=== PATIENT | female | born 1950 | race American Indian/Alaskan Native ===

== ENCOUNTER 2017-01-06 21:49 | Observation (INO) | payer MEDICARE ==
[2017-01-06 23:25] LABS: Anion Gap 12 mmol/L; BUN/Creatinine Ratio 17.14; Blood Urea Nitrogen 12 mg/dL (7-17); Calcium 8.5 mg/dL (8.4-10.2); Carbon Dioxide 31 mmol/L (22-30); Chloride 105.2 mmol/L (98-107); Glucose 112 mg/dL (65-100); Potassium 4.3 mmol/L (3.6-5.0); Sodium 144 mmol/L (137-145)
[2017-01-06 23:31] LABS: Basophils % (Auto) 0.3 % (0.0-1.8); Eosinophils % (Auto) 3.6 % (0.0-4.3); Hematocrit 39.5 % (30.3-42.9); Mean Corpuscular HGB Conc 33 % (30-34); Mean Corpuscular Hemoglobin 29 pg (28-32); Mean Corpuscular Volume 89 fl (79-97); Platelet Count 232 K/mm3 (140-440); Red Blood Count 4.45 M/mm3 (3.65-5.03); Red Cell Distribution Width 13.4 % (13.2-15.2); White Blood Count 6.4 K/mm3 (4.5-11.0)
--- NOTE | 2017-01-07 08:39 | Emergency Department Report ---
ED Chest Pain HPI - General Chief Complaint: Chest Pain Stated Complaint: CP Time Seen by Provider: 01/07/17 08:38 Source: patient Mode of arrival: Ambulatory Limitations: No Limitations - History of Present Illness Initial Comments: Patient is a 66-year-old female past medical history transient ischemic attack who presents with right-sided chest pain that has been going on for the last day. Patient states that the pain is a 9 out 10 and occurred when she was sleeping around 6 AM and awoke her from her sleep. She states that it was sudden in onset as a sharp type of pain. It radiates throughout her chest. Nothing makes the chest pain better or worse the chest pain is constant. She denies having any shortness of breath nausea or vomiting. 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 She takes Lipitor and takes a daily aspirin every day. Severity scale (0 -10): 9 - Related Data Previous Rx's Medication Instructions Recorded Last Taken Type Acetaminophen/Codeine 1 tab PO Q6H PRN #10 tab 05/05/14 Unknown Rx [Acetaminophen-Codeine #3 TAB] Penicillin Vk [Veetids TAB] 500 mg PO QID #40 tablet 05/05/14 Unknown Rx Allergies Allergy/AdvReac Type Severity Reaction Status Date / Time No Known Allergies Allergy Unverified 05/05/14 09:24 Heart Score - HEART Score History: Slightly suspicious EKG: Normal Age: 45-65 Risk factors: 1-2 risk factors Troponin: > 3x normal limit HEART Score: 4 ED Review of Systems ROS: Stated complaint: CP Other details as noted in HPI Constitutional: denies: chills, fever Eyes: denies: eye pain, eye discharge, vision change ENT: denies: ear pain, throat pain Respiratory: denies: cough, shortness of breath, wheezing Cardiovascular: chest pain. denies: palpitations Endocrine: no symptoms reported Gastrointestinal: denies: abdominal pain, nausea, diarrhea Genitourinary: denies: urgency, dysuria, discharge Musculoskeletal: denies: back pain, joint swelling, arthralgia Skin: denies: rash, lesions Neurological: denies: headache, weakness, paresthesias Psychiatric: denies: anxiety, depression Hematological/Lymphatic: denies: easy bleeding, easy bruising ED Past Medical Hx - Past Medical History Previous Medical History?: No Additional medical history: hammer toes - Surgical History Past Surgical History?: Yes Hx Cholecystectomy: Yes Additional Surgical History: Bilat knee replacement,BUNGEON REPAIR, - Social History Smoking Status: Never Smoker Substance Use Type: None - Medications Home Medications: Home Medications Medication Instructions Recorded Confirmed Last Taken Type Acetaminophen/Codeine 1 tab PO Q6H PRN #10 tab 05/05/14 Unknown Rx [Acetaminophen-Codeine #3 TAB] Penicillin Vk [Veetids TAB] 500 mg PO QID #40 tablet 05/05/14 Unknown Rx ED Physical Exam - General Limitations: No Limitations General appearance: alert, in no apparent distress - Head Head exam: Present: atraumatic, normocephalic - Eye Eye exam: Present: normal appearance - ENT ENT exam: Present: mucous membranes moist - Neck Neck exam: Present: normal inspection - Respiratory Respiratory exam: Present: normal lung sounds bilaterally, chest wall tenderness. Absent: respiratory distress - Cardiovascular Cardiovascular Exam: Present: regular rate, normal rhythm. Absent: systolic murmur, diastolic murmur, rubs, gallop - GI/Abdominal GI/Abdominal exam: Present: soft, normal bowel sounds - Extremities Exam Extremities exam: Present: normal inspection - Back Exam Back exam: Present: normal inspection - Neurological Exam Neurological exam: Present: alert, oriented X3 - Psychiatric Psychiatric exam: Present: normal affect, normal mood - Skin Skin exam: Present: warm, dry, intact, normal color. Absent: rash ED Course Vital Signs 01/06/17 01/07/17 01/07/17 21:59 01:14 06:21 Temperature 98.8 F 98.6 F 98.3 F Pulse Rate 79 70 63 Respiratory 18 20 16 Rate Blood Pressure 136/86 128/79 Blood Pressure 128/75 [Left] O2 Sat by Pulse 100 100 100 Oximetry 01/07/17 01/07/17 07:45 10:28 Temperature 97.7 F Pulse Rate 68 62 Respiratory 18 18 Rate Blood Pressure Blood Pressure 137/78 128/77 [Left] O2 Sat by Pulse 100 98 Oximetry - Reevaluation(s) Reevaluation #1: 01/07/17 09:29 Patient is still having chest pain I will give patient IV morphine and I will admit patient AURE score - Aure Score Age > 65: (0) No Aspirin use within the Past 7 Days: (1) Yes 3 or more CAD Risk Factors: (1) Yes 2 or more Angina events in past 24 hrs: (0) No Known CAD with more than 50% Stenosis: (0) No Elevated Cardiac Markers: (0) No ST Deviation Greater than 0.5mm: (0) No AURE Score: 2 ED Medical Decision Making - Lab Data Result diagrams: 01/06/17 22:51 01/06/17 22:51 Lab Results 01/06/17 01/06/17 01/07/17 Range/Units 22:51 22:51 00:42 WBC 6.4 (4.5-11.0) K/mm3 RBC 4.45 (3.65-5.03) M/mm3 Hgb 13.0 (10.1-14.3) gm/dl Hct 39.5 (30.3-42.9) % MCV 89 (79-97) fl MCH 29 (28-32) pg MCHC 33 (30-34) % RDW 13.4 (13.2-15.2) % Plt Count 232 (140-440) K/mm3 Lymph % (Auto) 36.3 H (13.4-35.0) % [place] % (Auto) 9.1 H (0.0-7.3) % Eos % (Auto) 3.6 (0.0-4.3) % Baso % (Auto) 0.3 (0.0-1.8) % Lymph # 2.3 (1.2-5.4) K/mm3 [place] # 0.6 (0.0-0.8) K/mm3 Eos # 0.2 (0.0-0.4) K/mm3 Baso # 0.0 (0.0-0.1) K/mm3 Seg Neutrophils % 50.7 (40.0-70.0) % Seg Neutrophils # 3.2 (1.8-7.7) K/mm3 Sodium 144 (137-145) mmol/L Potassium 4.3 (3.6-5.0) mmol/L Chloride 105.2 (98-107) mmol/L Carbon Dioxide 31 H (22-30) mmol/L Anion Gap 12 mmol/L BUN 12 (7-17) mg/dL Creatinine 0.7 (0.7-1.2) mg/dL Estimated GFR > 60 ml/min BUN/Creatinine Ratio 17.14 % Glucose 112 H (65-100) mg/dL Calcium 8.5 (8.4-10.2) mg/dL Troponin T < 0.010 < 0.010 (0.00-0.029) ng/mL 01/07/17 Range/Units 04:05 WBC (4.5-11.0) K/mm3 RBC (3.65-5.03) M/mm3 Hgb (10.1-14.3) gm/dl Hct (30.3-42.9) % MCV (79-97) fl MCH (28-32) pg MCHC (30-34) % RDW (13.2-15.2) % Plt Count (140-440) K/mm3 Lymph % (Auto) (13.4-35.0) % [place] % (Auto) (0.0-7.3) % Eos % (Auto) (0.0-4.3) % Baso % (Auto) (0.0-1.8) % Lymph # (1.2-5.4) K/mm3 [place] # (0.0-0.8) K/mm3 Eos # (0.0-0.4) K/mm3 Baso # (0.0-0.1) K/mm3 Seg Neutrophils % (40.0-70.0) % Seg Neutrophils # (1.8-7.7) K/mm3 Sodium (137-145) mmol/L Potassium (3.6-5.0) mmol/L Chloride (98-107) mmol/L Carbon Dioxide (22-30) mmol/L Anion Gap mmol/L BUN (7-17) mg/dL Creatinine (0.7-1.2) mg/dL Estimated GFR ml/min BUN/Creatinine Ratio % Glucose (65-100) mg/dL Calcium (8.4-10.2) mg/dL Troponin T < 0.010 (0.00-0.029) ng/mL - EKG Data -: EKG Interpreted by Me - EKG Data 01/07/17 09:30 EKG shows normal sinus rhythm no ST segment elevations, normal axis no T-wave inversions. - Radiology Data Radiology results: image reviewed Chest x-ray: Shows no acute cardio-pulmonary disease - Medical Decision Making Chief medical diagnosis: Non-STEMI Differential medical diagnosis: Costochondritis, GERD, pneumothorax, pneumonia EKG, CBC, CMP, chest x-ray, troponin, IV pain medication, aspirin Due to patient having risk factors such as hyperlipidemia advanced age and chest pain that has been going on for the last day different from her typical GERD I will admit patient for an ACS rule out. Discussed plan with patient and she agrees with plan. Critical care attestation.: If time is entered above; I have spent that time in minutes in the direct care of this critically ill patient, excluding procedure time. ED Disposition Clinical Impression: Chest pain Qualifiers: Chest pain type: unspecified Qualified Code(s): R07.9 - Chest pain, unspecified Disposition: DC-09 OP ADMIT IP TO THIS HOSP Is pt being admited?: Yes Does the pt Need Aspirin: No Condition: Stable Instructions: Chest Pain (ED) Referrals: PRIMARY CARE, [Primary Care Provider] - 3-5 Days Time of Disposition: 11:15
[2017-01-07] MEDS ORDERED: BABY ASPIRIN PO ONE (09:02)
[2017-01-07] MEDS ORDERED: MORPHINE IV ONE (09:25)
--- NOTE | 2017-01-07 09:30 | XRay Report ---
ROUTINE CHEST, TWO VIEWS: HISTORY: chest pain. The trachea, heart, mediastinal contour, lung connelly and bony thorax are unremarkable. IMPRESSION: Unremarkable chest x-ray.
[2017-01-07] MEDS ORDERED: ZOFRAN ONE (10:29)
[2017-01-07] MEDS ORDERED: ZOFRAN IV ONE (10:30)
[2017-01-07] MEDS ORDERED: ZOFRAN IV PRN (16:58)
[2017-01-07] MEDS ORDERED: PERCOCET 5/325 PO PRN (16:58)
[2017-01-07] MEDS ORDERED: DILAUDID IV PRN (16:58)
[2017-01-07] MEDS ORDERED: MILK OF MAGNESIA PO PRN (16:58)
[2017-01-07] MEDS ORDERED: TYLENOL PO PRN (16:58)
[2017-01-07] MEDS ORDERED: PHENERGAN PR PRN (16:58)
[2017-01-07] MEDS ORDERED: TYLENOL #3 PO PRN (16:58)
[2017-01-07] MEDS ORDERED: DULCOLAX PR PRN (16:58)
--- NOTE | 2017-01-07 16:58 | History and Physical Report ---
History of Present Illness Date of examination: 01/07/17 Date of admission: 01/07/17 11:11 Chief complaint: Chest pain since AM History of present illness: - History of Present Illness Initial Comments: Patient is a 66-year-old female past medical history transient ischemic attack who presents with retrosternal and rt chest pain that has been going on for the last day. Patient states that the pain is a 9 out 10 and occurred when she was sleeping around 6 AM and awoke her from her sleep. She states that it was sudden in onset as a sharp type of pain. It radiates throughout her chest. Nothing makes the chest pain better or worse the chest pain is constant. She denies having any shortness of breath nausea or vomiting. 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 She takes Lipitor and takes a daily aspirin every day. Severity scale (0 -10): 9 Heart Score - HEART Score History: Slightly suspicious EKG: Normal Age: 45-65 Risk factors: 1-2 risk factors Troponin: > 3x normal limit HEART Score: 4 Past Medical History Previous Medical History?: No Additional medical history: hammer toes Surgical History Past Surgical History?: Yes Hx Cholecystectomy: Yes Additional Surgical History: Bilat knee replacement,BUNGEON REPAIR, Social History Smoking Status: Never Smoker Substance Use Type: None Medications Home Medications: Home Medications Medication Instructions Recorded Confirmed Last Taken Type Acetaminophen/Codeine 1 tab PO Q6H PRN #10 tab 05/05/14 Unknown Rx [Acetaminophen-Codeine #3 TAB] Penicillin Vk [Veetids TAB] 500 mg PO QID #40 tablet 05/05/14 Unknown Rx Review of Systems Stated complaint: CP Other details as noted in HPI Constitutional: denies: chills, fever Eyes: denies: eye pain, eye discharge, vision change ENT: denies: ear pain, throat pain Respiratory: denies: cough, shortness of breath, wheezing Cardiovascular: chest pain. denies: palpitations Endocrine: no symptoms reported Gastrointestinal: denies: abdominal pain, nausea, diarrhea Genitourinary: denies: urgency, dysuria, discharge Musculoskeletal: denies: back pain, joint swelling, arthralgia Skin: denies: rash, lesions Neurological: denies: headache, weakness, paresthesias Psychiatric: denies: anxiety, depression Hematological/Lymphatic: denies: easy bleeding, easy bruising Medications and Allergies Allergies Allergy/AdvReac Type Severity Reaction Status Date / Time No Known Allergies Allergy Unverified 05/05/14 09:24 Home Medications Medication Instructions Recorded Confirmed Last Taken Type Acetaminophen/Codeine 1 tab PO Q6H PRN #10 tab 05/05/14 Unknown Rx [Acetaminophen-Codeine #3 TAB] Penicillin Vk [Veetids TAB] 500 mg PO QID #40 tablet 05/05/14 Unknown Rx Exam - Constitutional Vitals: Temp Pulse Resp BP Pulse Ox 97.7 F 68 18 108/68 97 01/07/17 07:45 01/07/17 15:16 01/07/17 15:16 01/07/17 15:16 01/07/17 15:16 General appearance: Present: no acute distress, well-nourished - EENT Eyes: Present: PERRL ENT: hearing intact, clear oral mucosa - Neck Neck: Present: supple, normal ROM - Respiratory Respiratory effort: normal Respiratory: bilateral: CTA - Cardiovascular Heart rate: 63 Rhythm: regular Heart Sounds: Present: S1 & S2. Absent: rub, click - Extremities Extremities: pulses symmetrical, No edema Peripheral Pulses: within normal limits - Abdominal General gastrointestinal: Present: soft, non-tender, non-distended, normal bowel sounds Female genitourinary: Present: normal - Rectal Rectal Exam: deferred - Integumentary Integumentary: Present: clear, warm, dry - Musculoskeletal Musculoskeletal: gait normal, strength equal bilaterally - Psychiatric Psychiatric: appropriate mood/affect, intact judgment & insight - Neurologic Neurologic: CNII-XII intact, moves all extremities - Allied Health Allied health notes reviewed: nursing, case management Results - Labs CBC & Chem 7: 01/06/17 22:51 01/06/17 22:51 Labs: Laboratory Last Values WBC 6.4 K/mm3 (4.5-11.0) 01/06/17 22:51 RBC 4.45 M/mm3 (3.65-5.03) 01/06/17 22:51 Hgb 13.0 gm/dl (10.1-14.3) 01/06/17 22:51 Hct 39.5 % (30.3-42.9) 01/06/17 22:51 MCV 89 fl (79-97) 01/06/17 22:51 MCH 29 pg (28-32) 01/06/17 22:51 MCHC 33 % (30-34) 01/06/17 22:51 RDW 13.4 % (13.2-15.2) 01/06/17 22:51 Plt Count 232 K/mm3 (140-440) 01/06/17 22:51 Lymph % (Auto) 36.3 % (13.4-35.0) H 01/06/17 22:51 [place] % (Auto) 9.1 % (0.0-7.3) H 01/06/17 22:51 Eos % (Auto) 3.6 % (0.0-4.3) 01/06/17 22:51 Baso % (Auto) 0.3 % (0.0-1.8) 01/06/17 22:51 Lymph # 2.3 K/mm3 (1.2-5.4) 01/06/17 22:51 [place] # 0.6 K/mm3 (0.0-0.8) 01/06/17 22:51 Eos # 0.2 K/mm3 (0.0-0.4) 01/06/17 22:51 Baso # 0.0 K/mm3 (0.0-0.1) 01/06/17 22:51 Seg Neutrophils % 50.7 % (40.0-70.0) 01/06/17 22:51 Seg Neutrophils # 3.2 K/mm3 (1.8-7.7) 01/06/17 22:51 Sodium 144 mmol/L (137-145) 01/06/17 22:51 Potassium 4.3 mmol/L (3.6-5.0) 01/06/17 22:51 Chloride 105.2 mmol/L (98-107) 01/06/17 22:51 Carbon Dioxide 31 mmol/L (22-30) H 01/06/17 22:51 Anion Gap 12 mmol/L 01/06/17 22:51 BUN 12 mg/dL (7-17) 01/06/17 22:51 Creatinine 0.7 mg/dL (0.7-1.2) 01/06/17 22:51 Estimated GFR > 60 ml/min 01/06/17 22:51 BUN/Creatinine Ratio 17.14 % 01/06/17 22:51 Glucose 112 mg/dL (65-100) H 01/06/17 22:51 Calcium 8.5 mg/dL (8.4-10.2) 01/06/17 22:51 Troponin T < 0.010 ng/mL (0.00-0.029) 01/07/17 04:05 - Imaging and Cardiology EKG: report reviewed (63 NSR) Assessment and Plan VTE prophylaxis?: Chemical Plan of care discussed with patient/family: Yes - Patient Problems (1) Acute coronary syndrome Current Visit: Yes Status: Acute Plan to address problem: Patient to get Serial cardiac enzymes and Lexiscan. Diff Dx of costochondritis and GERD (2) TIA (transient ischemic attack) Current Visit: No Status: Inactive Qualifiers: Transient cerebral ischemia type: unspecified Qualified Code(s): G45.9 - Transient cerebral ischemic attack, unspecified Plan to address problem: In the past (3) Malnutrition Current Visit: Yes Status: Chronic Plan to address problem: Albumin 3.3 Dietary consult (4) DVT prophylaxis Current Visit: Yes Status: Acute Plan to address problem: On Lovenox
[2017-01-07 18:27] LABS: Creatine Kinase MB 1.8 ng/mL (0.0-4.0)
[2017-01-07 18:28] LABS: Creatine Kinase 202 units/L (30-135)
[2017-01-07] MEDS ORDERED: PEPCID IV SCH (22:00)
[2017-01-07 23:34] LABS: Creatine Kinase MB 1.6 ng/mL (0.0-4.0)
[2017-01-07 23:36] LABS: Creatine Kinase 167 units/L (30-135)
[2017-01-08 08:10] LABS: Creatine Kinase MB 1.6 ng/mL (0.0-4.0)
[2017-01-08 08:13] LABS: Alanine Aminotransferase 16 units/L (7-56); Albumin 3.3 g/dL (3.9-5); Alkaline Phosphatase 49 units/L (35-129); Anion Gap 16 mmol/L; BUN/Creatinine Ratio 21.66; Blood Urea Nitrogen 13 mg/dL (7-17); Calcium 8.4 mg/dL (8.4-10.2); Carbon Dioxide 28 mmol/L (22-30); Chloride 104.1 mmol/L (98-107); Glucose 130 mg/dL (65-100); Sodium 144 mmol/L (137-145); Total Protein 6.7 g/dL (6.3-8.2)
[2017-01-08 08:17] LABS: Creatine Kinase 161 units/L (30-135)
--- NOTE | 2017-01-08 08:52 | Admit Criteria Form ---
Admission Criteria Documentation: CARDIOLOGY GRG Clinical Indications for Admission to Inpatient Care ([place]/check or initial the applicable condition/criteria) Hospital admission is needed for appropriate care of the patient because of ANY ONE of the following: [ ] I. Hemodynamic instability as indicated by ALL of the following (1)(2)(3) (4)(5)(6)(7)(8)(9)(10) [ ]a) Vital sign abnormality not readily corrected by appropriate treatment with 12-24 hours for ANY ONE: [ ]i) Hypotension that persists despite appropriate treatment (eg, volume repletion) [ ]ii) Tachycardiathat persists despite appropriate tx ( e.g., analgesia, fluids, sedation as indicated [ ]iii) Orthostatic vital sign changes that persists despite appropriate treatment (eg, volume repletion) [ ]b) Vital sign abnormailty that is severe indicated by ANY ONE of the following: [ ]i) Inadequate perfusion indicated by ANY ONE of the following: [ ] 1) Lactic acidosis (> 2 mmol/L) [ ] 2) New abnormal capillary refill (> 3 seconds) [ ] 3) Reduced urine output [ ] 4) New altered mental status [ ] 5) Myocardial Ischemia [ ] 6) Other metabolic acidosis (arterial pH <7.35 ) not otherwise explained. [ ]ii) Mean arterial pressure[A] less than 60 mm Hg [ ]iii) Mean arterial pressure[A] less than 70 mm Hg after 30 minutes of appropriate treatment (eg, fluid resuscitation) [ ]iv) Sustained heart rate greater than 120 beats per minute in adult or child 6 years or older[B] [ ]v) IV inotropic or vasopressor medication required to maintain adequate blood pressure or perfusion [ ] II. Severe heart failure as indicated by ANY ONE of the following(17)(18) [ ]a) Respiratory distress [ ]b) Hypotension [ ]c) Debilitating anasarca refractory to therapy (eg, tissue breakdown with infection)[C](19) [ ]d) Cardiac arrhythmias of immediate concern [ ]e) Myocardial ischemia [ ] III. Cardiac arrhythmias or findings of immediate concern indicated by ANY ONE of the following (21)(22): [ ] a) Heart rhythms that are inherently dangerous or unstable indicated by ANY ONE of the following (23)(24)(25): [ ] i) Resuscitated ventricular fibrillation or cardiac arrest [ ] ii) Ventricular escape rhythm [ ] iii) Sustained ventricular tachycardia (30 seconds or more of ventricular rhythm at greater than 100 beats per minute) [ ] iv) Nonsustained ventricular tachycardia and ANY ONE of the following: [ ] 1) Suspected cardiac ischemia as cause or consequence of ventricular tachycardia [ ] 2) Acute myocarditis [ ] b) Unstable cardiac conduction defects indicated by ANY ONE of the following(25)(26)(27) [ ] i) Type II second-degree atrioventricular block [ ]ii) Third-degree atrioventricular block [ ]iii) New-onset left bundle branch block with suspected myocardial ischemia [ ]c) Any heart rhythm and ANY ONE of the following (23)(24)(28)(29) (30) [ ] i) Continuous long-term ECG monitoring needed (e.g., initiation of drug requiring monitoring for more than 24 hours) [ ] ii) Patient has automatic implanted cardioverter defibrillator that is repeatedly firing, malfunctioning, or in need of immediate adjustment of settings beyond the scope of ambulatory or observation care [ ]d) Heart rhythms of concern due to ANY ONE of the following: [ ] i) Hypotension [ ] ii) Respiratory distress [ ] iii) Association with other significant symptoms (e.g., bradycardia with syncope or ongoing dizziness, supraventricular tachycardia with chest pain (28)(29)(31) [ ] IV. Monitoring for cardiac contusion beyond the scope of observation care needed [A](32)(33)(34) [ ] V. Surgical or device complication (e.g., valve replacement complication , ICD disfunction or pacemaker dysfunction) (49)(50)(51)(52)(53)(54) [ ] . Inpatient palliative care needed. [F](51)(52) Also use Inpatient Palliative Care Criteria [ ] VII. Nonbacterial thrombotic ([place]) endocarditis(43)(44)(55)(56)(57) [X] VIII. Cardiology condition, symptom, or finding for which emergency and observation care has failed or are not considered appropriate. [ ] IX. Acute valvular disease requiring inpatient as indicated by ANY ONE of the following (40)(41) [ ]a) Acute valvular regurgitation (42) [ ]b) Noninfectious valvulitis (43)(44) [ ]c) Obstructive valve thrombosis (45)(46) [ ]d) Paravalvular leak(47)(48) [ ]e) Other significant valvular disorder remaining after emergency or observation level of care (as appropriate) [ ]X. Pericardial disease requiring inpatient treatment as indicated by ANY ONE of the following (35)(36)(37)(38) [ ]a) Suspected tamponade [ ]b) Hemopericardium [ ]c) Other significant pericardial disorder remaining after emergency or observation level of care (as appropriate)(39) [ ] XI. Cardiac ischemia beyond scope of emergency and observation care. [ ] XII. Cyanotic heart disease requiring inpatient care as indicated by 1 or more of the following(58)(59)(60): [ ]a) Acute onset of hypoxemia [ ]b) Exacerbation [ ] XIII. Hypertension requiring inpatient treatment as indicated by ANYONE of the following(11)(12)(13)(14): [ ]a) Severe hypertension (SBP greater than 180 mm Hg or DBP greater than 110 mm Hg, or greater than the 95th percentile for age, gender, and height in pediatric patients) that cannot be controlled (eg, to SBP less than 160 mm Hg and DBP less than 100 mm Hg) by emergency department or observation care treatment(15) [ ]b) Acute end organ damage secondary to hypertension (SBP greater than 140 mm Hg or DBP greater than 90 mm Hg) as indicated by ANYONE of the following: [ ] i) Hypertensive encephalopathy (eg, Altered mental status)(16) [ ] ii) Cerebral infarction [ ] iii) Intracranial hemorrhage [ ] iv) Myocardial ischemia or infarction [ ] v) Heart failure (eg, pulmonary edema) [ ] vi) Aortic dissection [ ] vii) Increased creatinine (new) with reduction of more than 50% in estimated glomerular filtration rate from baseline [ ] viii) Papilledema [ ] ix) Retinal hemorrhage [ ] x) Microangiopathic hemolytic anemia [ ] xi) Seizure [ ] xii) Other significant finding secondary to hypertension [ ] XIV. Complications of transplanted heart indicated by ANY ONE of the following(61): [ ]a) Acute graft rejection requiring inpatient management (eg, intravenous imunosuppression)(62)(63) [ ]b) Acute graft heart failure indicated by ANY ONE of the following(64): [ ] i) Hemodynamic instability [ ] ii) Cardiac arrhythmias of immediate concern [ ] iii) Pulmonary edema that is very severe (eg, mechanical ventilation needed, imminent or likely, need for 100% oxygen to keep oxygen saturation above 90%) [ ] iv) Pulmonary edema that is persistent as indicated by ALL of the following: [ ] 1) New need for oxygen therapy to keep oxygen saturation above 90 % (or increased FiO2 need from baseline) [ ] 2) Has not improved sufficiently with emergency department or observation care IV diuretics or other heart failure treatments[E]. [ ] iv) Altered mental status that is severe or persistent [ ] iv) Increased creatinine (new on laboratory test) with reduction of more than 50% in estimated glomerular filtration rate from baseline [ ] iv) Progressively (ongoing) rising creatinine (known from past laboratory test) with reduction of more than 25% in estimated glomerular filtration rate from baseline [ ] iv) Acute renal failure [ ] iv) Acute peripheral ischemia (eg, examination shows pulseless, cool, mottled, or cyanotic extremity) [ ] iv) Pulmonary artery catheter monitoring needed [ ] iv) Other sign or symptom of heart failure requiring inpatient treatment (ie, too severe or not responsive to outpatient and observation care treatment) [ ]c) Infection requiring inpatient management (eg, Hemodynamic instability, need for intravenous antimicrobial treatment)(66)(67)(68)(69)(70) [ ]d) Cardiac allograft vasculopathy requiring inpatient management (eg evidence of cardiacischemia)(71) [ ]e) Other complication of transplanted heart (eg, stroke, severe pulmonary hypertension, severe valvular dysfunction) requiring inpatient management(72) The original [email or web address] content created by [email or web address] has been revised. The portions of the content which have been revised are identified through the use of italic text or in bold, and [facility] has neither reviewed nor approved the modified material. All other unmodified content is copyright [facility]. Please see references footnoted in the original [facility] edition 2017 Admission Criteria Met: Yes
[2017-01-08] MEDS ORDERED: PROTONIX PO SCH (10:00)
[2017-01-08] MEDS ORDERED: BABY ASPIRIN PO SCH (10:00)
--- NOTE | 2017-01-08 12:50 | Consultation ---
History of Present Illness Consult date: 01/08/17 Consult reason: chest pain History of present illness: Patient is a 66-year-old woman who presented to the hospital with chest pain. Chest pain was nonexertional, and appeared reproducible with movement of the thorax and on palpation over the chest wall. There is no shortness of breath, no palpitations and no lower extremity edema. ECG normal sinus rhythm with no ST or T-wave abnormalities. Cardiac enzymes were negative. The patient underwent an exercise thallium stress test, ordered by the medical team. She exercised for 6 minutes of Tim protocol, completing stage II and achieving 7 METS. There was no chest pain with exercise, no ST changes of ischemia and no significant dysrhythmias. The thallium perfusion images are pending for final interpretation of this test. Past History Past Medical History: No medical history Medications and Allergies Allergies Allergy/AdvReac Type Severity Reaction Status Date / Time No Known Allergies Allergy Unverified 05/05/14 09:24 Home Medications Medication Instructions Recorded Confirmed Last Taken Type Acetaminophen/Codeine 1 tab PO Q6H PRN #10 tab 05/05/14 Unknown Rx [Acetaminophen-Codeine #3 TAB] Penicillin Vk [Veetids TAB] 500 mg PO QID #40 tablet 05/05/14 Unknown Rx Active Meds: Active Medications Acetaminophen (Tylenol) 650 mg PO Q4H PRN PRN Reason: Pain MILD(1-3)/Fever >100.5/LANDRY Acetaminophen/Codeine Phosphate (Tylenol #3) 1 tab PO Q6H PRN PRN Reason: Pain Aspirin (Baby Aspirin) 81 mg PO QDAY [facility] Last Admin: 01/08/17 12:26 Dose: 81 mg Atorvastatin Calcium (Lipitor) 10 mg PO QHS [facility] Bisacodyl (Dulcolax) 10 mg [place] QDAY PRN PRN Reason: Constipation unrelieved by [facility] Famotidine (Pepcid) 20 mg PO BID [facility] Last Admin: 01/08/17 12:26 Dose: 20 mg Hydromorphone HCl (Dilaudid) 0.5 mg IV Q3H PRN PRN Reason: Pain , Severe (7-10) Magnesium Hydroxide (Milk Of Magnesia) 30 ml PO Q4H PRN PRN Reason: Constipation Ondansetron HCl (Zofran) 4 mg IV Q8H PRN PRN Reason: N/V unrelieved by Reglan Last Admin: 01/07/17 17:52 Dose: 4 mg Oxycodone/Acetaminophen (Percocet 5/325) 1 tab PO Q6H PRN PRN Reason: Pain, Moderate (4-6) Promethazine HCl (Phenergan) 25 mg TX Q6H PRN PRN Reason: N/V IF NPO AND NO IV ACCESS Review of Systems Cardiovascular: chest pain, shortness of breath, no orthopnea, no palpitations, no rapid/irregular heart beat, no edema, no syncope, no lightheadedness Physical Examination Vital Signs Temp Pulse Resp BP Pulse Ox 98.8 F 79 18 136/86 100 01/06/17 21:59 01/06/17 21:59 01/06/17 21:59 01/06/17 21:59 01/06/17 21:59 General appearance: no acute distress HEENT: Positive: PERRL Neck: Positive: neck supple Cardiac: Positive: Reg Rate and Rhythm Lungs: Positive: Decreased Breath Sounds Neuro: Positive: Grossly Intact Abdomen: Positive: Soft Female genitourinary: deferred Skin: Positive: Clear Extremities: Absent: edema Results 01/06/17 22:51 01/08/17 06:43 Cardiac Enzymes 01/07/17 01/07/17 01/08/17 Range/Units 17:47 23:01 06:43 AST 17 (5-40) units/L CK-MB (CK-2) 1.8 1.6 (0.0-4.0) ng/mL 01/08/17 Range/Units 06:43 AST (5-40) units/L CK-MB (CK-2) 1.6 (0.0-4.0) ng/mL Lipids 01/08/17 Range/Units 06:43 Triglycerides 118 (2-149) mg/dL Cholesterol 222 H (50-199) mg/dL HDL Cholesterol 56 (40-59) mg/dL Cholesterol/HDL Ratio 3.96 % Comprehensive Metabolic Panel 01/08/17 Range/Units 06:43 Sodium 144 (137-145) mmol/L Potassium 4.0 (3.6-5.0) mmol/L Chloride 104.1 (98-107) mmol/L Carbon Dioxide 28 (22-30) mmol/L BUN 13 (7-17) mg/dL Creatinine 0.6 L (0.7-1.2) mg/dL Glucose 130 H (65-100) mg/dL Calcium 8.4 (8.4-10.2) mg/dL AST 17 (5-40) units/L ALT 16 (7-56) units/L Alkaline Phosphatase 49 (35-129) units/L Total Protein 6.7 (6.3-8.2) g/dL Albumin 3.3 L (3.9-5) g/dL EKG interpretations - Telemetry EKG Rhythm: Sinus Rhythm Assessment and Plan - Patient Problems (1) Chest pain Current Visit: Yes Status: Acute Qualifiers: Chest pain type: C Ischemic chest pain type: I Plan to address problem: Chest pain is atypical, initial cardiac workup with serial ECGs and cardiac enzymes are negative. During exercise stress today, she exercised well up to 7 METS, with no chest pain and no ST changes of ischemia. Thallium perfusion images are pending for final interpretation of stress test.
[2017-01-08] MEDS ORDERED: PEPCID PO SCH (13:00)
[2017-01-08 17:53] VITALS: BP 128/60
--- NOTE | 2017-01-08 18:10 | Discharge Summary ---
Providers - Providers Date of Admission: 01/07/17 11:11 Date of discharge: 01/08/17 Attending physician: TAN BUSTILLOS 01/07/17 16:58 Consult to Physician [CONS] Routine Consulting Provider: ZULAY VALENTINE Reason For Exam: ACS Place consult to:: Dr. Valentine Notified:: Alexandra GONZLAES Phone number called:: Was contact made?: Yes If yes, spoke with:: Raquel-marquise service Time called:: 18:07 Primary care physician: HEALTH CARE MANAGER Hospitalization Reason for admission: chest pain Condition: Stable Pertinent studies: Chest x-ray Stress test Hospital course: Patient is a 66 years old obese female presented for chest pain. Acute coronary syndrome excluded based on EKG, serial cardiac enzymes and negative stress test. Most likely pain secondary to costochondritis as it is reproducible. Diagnosed with hyperlipidemia and started on statin. Counseled regarding importance of losing weight and lifestyle changes. Discharged is stable condition with PCP follow-up. Discharge diagnosis: Chest pain - likely secondary to costochondritis Hyperlipidemia - new diagnosis Obesity Disposition: DC-01 TO HOME OR SELFCARE Time spent for discharge: 35 minutes Core Measure Documentation - Palliative Care Palliative Care/ Comfort Measures: Not Applicable - Core Measures Any of the following diagnoses?: none Exam - Physical Exam Narrative exam: Seen and examined: - Constitutional Vitals: Temp Pulse Resp BP Pulse Ox 98.4 F 79 20 128/60 99 01/08/17 17:52 01/08/17 17:52 01/08/17 17:52 01/08/17 17:52 01/08/17 17:52 General appearance: Present: no acute distress, obese - EENT Eyes: Present: PERRL, EOM intact. Absent: scleral icterus, conjunctival injection - Neck Neck: Present: supple, normal ROM. Absent: masses or JVD - Respiratory Respiratory effort: normal Respiratory: bilateral: CTA, negative: rhonchi, wheezing - Cardiovascular Rhythm: regular Heart Sounds: Present: S1 & S2. Absent: systolic murmur - Extremities Extremities: no ischemia - Abdominal General gastrointestinal: Present: soft, non-tender, non-distended, normal bowel sounds - Neurologic Neurologic: CNII-XII intact, no focal deficits Plan Activity: advance as tolerated Diet: low cholesterol, low salt Follow up with: PRIMARY CARE, [Primary Care Provider] - 3-5 Days Prescriptions: AtorvaSTATin [Lipitor] 20 mg PO QHS #60 tablet Acetaminophen/Codeine [Tylenol /Codeine # 3 tab] 1 tab PO Q6H PRN #10 tab PRN Reason: Pain Aspirin [Aspirin BABY CHEW TAB] 81 mg PO QDAY #30 tab.chew Naproxen Sodium [Aleve TAB] 220 mg PO Q8H #15 tablet
--- NOTE | 2017-01-09 01:11 | Treadmill Report ---
THALLIUM STRESS TEST LEFT VENTRICLE: Left ventricular chamber size is within normal. Perfusion study demonstrates homogeneous uptake of the tracer in all segments, no significant perfusion defects identified. Gated analysis demonstrates normal left ventricular systolic function, ejection fraction 70%. CONCLUSION: Normal myocardial perfusion study. JOB# [id number] CA/NTS
== END 2017-01-08 19:25 | disposition home or self-care (01) ==
LOC: ED 21:49 → 4A 01-07 11:11 → INTOOBSV 01-07 11:11 → 4A 01-07 16:49
PROVIDERS: ADMIT Internal Medicine; ATTEND Internal Medicine
DX: M94.0 Chondrocostal junction syndrome [Tietze] (principal); E46 Unspecified protein-calorie malnutrition; E78.5 Hyperlipidemia, unspecified; E66.9 Obesity, unspecified; K21.9 Gastro-esophageal reflux disease without esophagitis; I24.9 Acute ischemic heart disease, unspecified; G45.9 Transient cerebral ischemic attack, unspecified; Z96.653 Presence of artificial knee joint, bilateral; Z68.33 Body mass index [BMI] 33.0-33.9, adult; Z79.899 Other long term (current) drug therapy; Z90.49 Acquired absence of other specified parts of digestive tract; Z71.3 Dietary counseling and surveillance
CPT/HCPCS: 36415; 71020; 78452; 80048; 80053; 80061; 82550; 82553; 83036; 84484; 85025; 93005; 93010; 93017; 96374; 96375; 96376; 99285; A9502; G0378; J2270; J2405

== ENCOUNTER 2018-05-24 00:40 | Emergency (ER) | payer MEDICARE ==
[2018-05-24 01:09] VITALS: BP 143/69
[2018-05-24] MEDS ORDERED: ZOFRAN ODT PO ONE (01:26)
[2018-05-24 02:51] LABS: Basophils % (Auto) 0.1 % (0.0-1.8); Eosinophils % (Auto) 0.9 % (0.0-4.3); Hematocrit 39.3 % (30.3-42.9); Hemoglobin 13.1 gm/dl (10.1-14.3); Lymphocytes # (Auto) 0.8 K/mm3 (1.2-5.4); Lymphocytes % (Auto) 14.9 % (13.4-35.0); Mean Corpuscular HGB Conc 33 % (30-34); Mean Corpuscular Volume 90 fl (79-97); Monocytes # (Auto) 0.3 K/mm3 (0.0-0.8); Monocytes % (Auto) 4.9 % (0.0-7.3); Platelet Count 223 K/mm3 (140-440); Red Blood Count 4.37 M/mm3 (3.65-5.03); Red Cell Distribution Width 13.6 % (13.2-15.2)
--- NOTE | 2018-05-24 02:54 | Emergency Department Report ---
ED N/V/D HPI - General Chief complaint: Nausea/Vomiting/Diarrhea Stated complaint: VOMITING WEAKNESS DIARRHEA Time Seen by Provider: 05/24/18 02:32 Source: patient Mode of arrival: Ambulatory Limitations: No Limitations, Language Barrier - History of Present Illness Initial comments: pt is s 67 y/o aaf who presents for N/V/D x 1 days unknown trigger pt has hx of htn, HLD, and GERD had cardiac eval 1 yr ago including card stress test and EF80% current medications include ASA and Simvastatin, pt denies abd pain, no cp no sob no dizziness no lightheadedness no last n/v 2 hrs ago, last po intake this am, pt denies hx of bowel surgeries or obstructions. diarrhea described as runny, emesis described as food stuffs. MD complaint: nausea, vomiting, diarrhea Onset/Timin -: days(s) Description of Vomiting: food contents Description of Diarrhea: water Associated Abdominal Pain: No Severity: mild Pain Scale: 3 Quality: cramping Consistency: intermittent Improves with: none Worsens with: eating Associated Symptoms: nausea/vomiting. denies: myalgias, chest pain, cough, diaphoresis, fever/chills, headaches, loss of appetite, malaise, rash, dysuria, shortness of breath, syncope, weakness - Related Data Previous Rx's Medication Instructions Recorded Last Taken Type Acetaminophen/Codeine [Tylenol 1 tab PO Q6H PRN #10 tab 01/08/17 Unknown Rx /Codeine # 3 tab] Aspirin [Aspirin BABY CHEW TAB] 81 mg PO QDAY #30 tab.chew 01/08/17 Unknown Rx Naproxen Sodium [Aleve TAB] 220 mg PO Q8H #15 tablet 01/08/17 Unknown Rx Rosuvastatin (Nf) [Crestor] 5 mg PO QHS #30 tablet 01/08/17 Unknown Rx Famotidine [Pepcid] 20 mg PO BID #60 tablet 05/24/18 Unknown Rx Ondansetron [Zofran Odt] 4 mg PO Q8HR #12 tab.rapdis 05/24/18 Unknown Rx Allergies Allergy/AdvReac Type Severity Reaction Status Date / Time No Known Allergies Allergy Unverified 05/05/14 09:24 ED Review of Systems ROS: Stated complaint: VOMITING WEAKNESS DIARRHEA Other details as noted in HPI Constitutional: denies: chills, fever Eyes: denies: eye pain, eye discharge, vision change ENT: denies: ear pain, throat pain Respiratory: denies: cough, shortness of breath, wheezing Cardiovascular: denies: chest pain, palpitations Endocrine: no symptoms reported Gastrointestinal: nausea, vomiting, diarrhea. denies: constipation, hematemesis, melena, hematochezia Genitourinary: denies: urgency, dysuria, frequency, hematuria, discharge, abnormal menses, dyspareunia Musculoskeletal: denies: back pain, joint swelling, arthralgia, myalgia Skin: denies: rash, lesions Neurological: denies: headache, weakness, paresthesias Psychiatric: denies: anxiety, depression Hematological/Lymphatic: denies: easy bleeding, easy bruising ED Past Medical Hx - Past Medical History Previous Medical History?: Yes Hx Arthritis: Yes Hx Kidney Stones: Yes Additional medical history: hammer toes - Surgical History Past Surgical History?: Yes Hx Cholecystectomy: Yes Additional Surgical History: Bilat knee replacement,BUNGEON REPAIR, - Social History Smoking Status: Never Smoker Substance Use Type: None - Medications Home Medications: Home Medications Medication Instructions Recorded Confirmed Last Taken Type Acetaminophen/Codeine [Tylenol 1 tab PO Q6H PRN #10 tab 01/08/17 Unknown Rx /Codeine # 3 tab] Aspirin [Aspirin BABY CHEW TAB] 81 mg PO QDAY #30 tab.chew 01/08/17 Unknown Rx Naproxen Sodium [Aleve TAB] 220 mg PO Q8H #15 tablet 01/08/17 Unknown Rx Rosuvastatin (Nf) [Crestor] 5 mg PO QHS #30 tablet 01/08/17 Unknown Rx Famotidine [Pepcid] 20 mg PO BID #60 tablet 05/24/18 Unknown Rx Ondansetron [Zofran Odt] 4 mg PO Q8HR #12 tab.rapdis 05/24/18 Unknown Rx ED Physical Exam - General Limitations: No Limitations, Language Barrier General appearance: alert, in no apparent distress - Head Head exam: Present: atraumatic, normocephalic - Eye Eye exam: Present: normal appearance, PERRL, EOMI Pupils: Present: normal accommodation - ENT ENT exam: Present: normal orophraynx, mucous membranes moist - Neck Neck exam: Present: normal inspection, full ROM. Absent: lymphadenopathy - Respiratory Respiratory exam: Present: normal lung sounds bilaterally. Absent: respiratory distress, wheezes, stridor, chest wall tenderness - Cardiovascular Cardiovascular Exam: Present: regular rate, normal rhythm, normal heart sounds. Absent: systolic murmur, diastolic murmur, rubs, gallop - GI/Abdominal GI/Abdominal exam: Present: soft, normal bowel sounds. Absent: distended, tenderness, guarding, rebound, rigid, bruit, hernia - Rectal Rectal exam: Present: deferred - Extremities Exam Extremities exam: Present: normal inspection, full ROM. Absent: tenderness - Back Exam Back exam: Present: normal inspection, full ROM. Absent: tenderness, CVA tenderness (R), CVA tenderness (L), muscle spasm - Neurological Exam Neurological exam: Present: alert, oriented X3, CN II-XII intact, normal gait - Psychiatric Psychiatric exam: Present: normal affect, normal mood - Skin Skin exam: Present: warm, dry, intact, normal color. Absent: rash ED Course Vital Signs 05/24/18 01:07 Temperature 98.9 F Pulse Rate 83 Respiratory 16 Rate Blood Pressure 143/69 O2 Sat by Pulse 97 Oximetry ED Medical Decision Making - Lab Data Result diagrams: 05/24/18 02:42 05/24/18 02:42 - EKG Data EKG shows normal: sinus rhythm Rate: normal - EKG Data When compared to previous EKG there are: changes noted Interpretation: normal EKG (interp by ed attending ) - Radiology Data Radiology results: report reviewed, image reviewed Findings [address] [address] XRay Report Signed Patient: VINH RAY MR#: [id number] : 1950 Acct:[id number] Age/Sex: 67 / F ADM Date: 05/24/18 Loc: ED Attending Dr: Ordering Physician: LUCHO CASPER NP Date of Service: 05/24/18 Procedure(s): XR abdomen 1V ap Accession Number(s): [id number] cc: LUCHO CASPER NP Fluoro Time In Minutes: FINAL REPORT PROCEDURE: XR ABDOMEN 1V AP TECHNIQUE: Abdominal series, including supine and upright AP views. HISTORY: abd pain COMPARISON: No prior studies are available for comparison. FINDINGS: Bowel gas pattern:Nonobstructive . Masses or calcifications:None . Bony structures:No significant abnormality . Pneumoperitoneum:None . Other:There has been a cholecystectomy.. IMPRESSION: No acute abnormality. Transcribed By: CO Dictated By: GIORGI JHAVERI MD Electronically Authenticated By: GIORGI JHAVERI MD Signed Date/Time: 05/24/18 030 - Medical Decision Making All symptoms are resolved at this time no nausea no vomiting no diarrhea patient tolerated by mouth intake without symptoms OF Zofran 1 given in triage EKG is normal KUB is normal all labs are normal plan DC to home patient will follow w ith PCP in 2-3 days patient will return to emergency department should symptoms worsen or return patient and family verbalized agreement and understanding with same, will DC to home in stable condition at this time. pt is currently a/o x 3 ambulatory with steady gait nad. Critical care attestation.: If time is entered above; I have spent that time in minutes in the direct care of this critically ill patient, excluding procedure time. ED Disposition Clinical Impression: Nausea & vomiting Qualifiers: Vomiting type: unspecified Vomiting Intractability: non-intractable Qualified Code(s): R11.2 - Nausea with vomiting, unspecified Disposition: DC-01 TO HOME OR SELFCARE Is pt being admited?: No Does the pt Need Aspirin: No Condition: Stable Instructions: Acute Nausea and Vomiting (ED), Dehydration (ED) Prescriptions: Famotidine [Pepcid] 20 mg PO BID #60 tablet Ondansetron [Zofran Odt] 4 mg PO Q8HR #12 tab.rapdis Referrals: JADIEL FIELDS [Other] - 3-5 Days Forms: Work/School Release Form(ED) Time of Disposition: 05:03
--- NOTE | 2018-05-24 03:09 | XRay Report ---
FINAL REPORT PROCEDURE: XR ABDOMEN 1V AP TECHNIQUE: Abdominal series, including supine and upright AP views. HISTORY: abd pain COMPARISON: No prior studies are available for comparison. FINDINGS: Bowel gas pattern:Nonobstructive . Masses or calcifications:None . Bony structures:No significant abnormality . Pneumoperitoneum:None . Other:There has been a cholecystectomy.. IMPRESSION: No acute abnormality.
[2018-05-24 03:15] LABS: Alanine Aminotransferase 20 units/L (7-56); BUN/Creatinine Ratio 14; Blood Urea Nitrogen 7 mg/dL (7-17); Calcium 8.6 mg/dL (8.4-10.2); Hemolysis Index 12
[2018-05-24 04:53] LABS: Bilirubin,Urine NEG (Negative); Blood,Urine NEG (Negative); Color,Urine Yellow (Yellow); Hyaline Casts,Urine 1 /LPF; Mucus,Urine FEW /HPF; Protein,Urine <15 mg/dL mg/dL (Negative); Urobilinogen,Urine < 2.0 mg/dL (<2.0)
== END 2018-05-24 05:05 | disposition home or self-care (01) ==
LOC: ED 00:40
DX: R11.2 Nausea with vomiting, unspecified (principal); R19.7 Diarrhea, unspecified; I10 Essential (primary) hypertension; K21.9 Gastro-esophageal reflux disease without esophagitis; M19.90 Unspecified osteoarthritis, unspecified site; Z90.49 Acquired absence of other specified parts of digestive tract; Z96.653 Presence of artificial knee joint, bilateral
CPT/HCPCS: 36415; 74018; 80053; 81001; 83690; 85025; 93005; 93010; 99284; Q0162

== ENCOUNTER 2020-07-16 19:18 | Emergency (ER) | payer MEDICARE ==
[2020-07-16 20:09] VITALS: BP 128/83
--- NOTE | 2020-07-16 20:36 | Emergency Department Report ---
ED ENT HPI - General Chief complaint: Nosebleed Stated complaint: MOUTH/NOSE BLEED Source: patient Mode of arrival: Ambulatory Limitations: No Limitations - History of Present Illness Initial comments: 69-year-old -Japanese female presents to the emergency room complaining of a nosebleed that happened 10 minutes prior to arrival. Patient states she has never had a nosebleed before. Patient reports she is on cholesterol medication and meloxicam for pain. Patient denies any trauma. Has a past medical history of hypertension hypercholesterolemia. MD complaint: epistaxis Onset/Timin -: minutes(s) (Prior to arrival) Location: nose Severity: mild Severity scale (0 -10): 2 Consistency: now resolved Improves with: none Worsens with: none - Related Data Previous Rx's Medication Instructions Recorded Last Taken Type Acetaminophen/Codeine [Tylenol 1 tab PO Q6H PRN #10 tab 01/08/17 Unknown Rx /Codeine # 3 tab] Aspirin [Aspirin BABY CHEW TAB] 81 mg PO QDAY #30 tab.chew 01/08/17 Unknown Rx Naproxen Sodium [Aleve TAB] 220 mg PO Q8H #15 tablet 01/08/17 Unknown Rx Rosuvastatin (Nf) [Crestor] 5 mg PO QHS #30 tablet 01/08/17 Unknown Rx Famotidine [Pepcid] 20 mg PO BID #60 tablet 05/24/18 Unknown Rx Ondansetron [Zofran Odt] 4 mg PO Q8HR #12 tab.rapdis 05/24/18 Unknown Rx Allergies Allergy/AdvReac Type Severity Reaction Status Date / Time No Known Allergies Allergy Unverified 05/05/14 09:24 ED Dental HPI - General Chief complaint: Nosebleed Stated complaint: MOUTH/NOSE BLEED Source: patient Mode of arrival: Ambulatory Limitations: No Limitations - Related Data Previous Rx's Medication Instructions Recorded Last Taken Type Acetaminophen/Codeine [Tylenol 1 tab PO Q6H PRN #10 tab 01/08/17 Unknown Rx /Codeine # 3 tab] Aspirin [Aspirin BABY CHEW TAB] 81 mg PO QDAY #30 tab.chew 01/08/17 Unknown Rx Naproxen Sodium [Aleve TAB] 220 mg PO Q8H #15 tablet 01/08/17 Unknown Rx Rosuvastatin (Nf) [Crestor] 5 mg PO QHS #30 tablet 01/08/17 Unknown Rx Famotidine [Pepcid] 20 mg PO BID #60 tablet 05/24/18 Unknown Rx Ondansetron [Zofran Odt] 4 mg PO Q8HR #12 tab.rapdis 05/24/18 Unknown Rx Allergies Allergy/AdvReac Type Severity Reaction Status Date / Time No Known Allergies Allergy Unverified 05/05/14 09:24 ED Review of Systems ROS: Stated complaint: MOUTH/NOSE BLEED Other details as noted in HPI Comment: All other systems reviewed and negative ED Past Medical Hx - Past Medical History Previous Medical History?: Yes Hx Arthritis: Yes Hx Kidney Stones: Yes Additional medical history: hammer toes. Left hip pain. Back pain - Surgical History Past Surgical History?: Yes Hx Cholecystectomy: Yes Additional Surgical History: Bilat knee replacement,BUNGEON REPAIR,. Right shoulder surgery - Social History Smoking Status: Never Smoker Substance Use Type: None - Medications Home Medications: Home Medications Medication Instructions Recorded Confirmed Last Taken Type Acetaminophen/Codeine [Tylenol 1 tab PO Q6H PRN #10 tab 01/08/17 Unknown Rx /Codeine # 3 tab] Aspirin [Aspirin BABY CHEW TAB] 81 mg PO QDAY #30 tab.chew 01/08/17 Unknown Rx Naproxen Sodium [Aleve TAB] 220 mg PO Q8H #15 tablet 01/08/17 Unknown Rx Rosuvastatin (Nf) [Crestor] 5 mg PO QHS #30 tablet 01/08/17 Unknown Rx Famotidine [Pepcid] 20 mg PO BID #60 tablet 05/24/18 Unknown Rx Ondansetron [Zofran Odt] 4 mg PO Q8HR #12 tab.rapdis 05/24/18 Unknown Rx ED Physical Exam - General Limitations: No Limitations General appearance: alert, in no apparent distress - Head Head exam: Present: atraumatic, normocephalic - Eye Eye exam: Present: normal appearance - ENT ENT exam: Present: mucous membranes moist, other (Blood bilateral nares are patent no active bleeding turbinates are enlarged but does not obstruct airway.) - Expanded ENT Exam Expanded Mouth exam: Present: normal external inspection, tongue normal Throat exam: Positive: normal inspection - Neck Neck exam: Present: normal inspection, full ROM - Respiratory Respiratory exam: Present: normal lung sounds bilaterally. Absent: respiratory distress - Cardiovascular Cardiovascular Exam: Present: regular rate, normal rhythm. Absent: systolic murmur, diastolic murmur, rubs, gallop - Extremities Exam Extremities exam: Present: normal inspection, full ROM - Back Exam Back exam: Present: normal inspection - Neurological Exam Neurological exam: Present: alert, oriented X3, normal gait - Psychiatric Psychiatric exam: Present: normal affect, normal mood - Skin Skin exam: Present: warm, dry, intact, normal color. Absent: rash ED Course Vital Signs 07/16/20 20:05 Temperature 98.7 F Pulse Rate 101 H Respiratory 18 Rate Blood Pressure 128/83 O2 Sat by Pulse 93 Oximetry ED Medical Decision Making - Lab Data Result diagrams: 07/16/20 20:40 07/16/20 20:40 - Medical Decision Making 69-year-old -Japanese female presents to the emergency room complaining of a nosebleed that happened 10 minutes prior to arrival. Patient states she has never had a nosebleed before. Patient reports she is on cholesterol medication and meloxicam for pain. Patient denies any trauma. Has a past medical history of hypertension hypercholesterolemia. Critical care attestation.: If time is entered above; I have spent that time in minutes in the direct care of this critically ill patient, excluding procedure time. ED Disposition Clinical Impression: Acute anterior epistaxis Disposition: DC-01 TO HOME OR SELFCARE Is pt being admited?: No Does the pt Need Aspirin: No Condition: Stable Instructions: Nosebleed, [id number] Additional Instructions: Labs are within normal limits. I recommend that you follow-up with your primary care provider. Referrals: Your, primary care provider [Other] - 3-5 Days ED ENT EXAM - General Limitations: No Limitations
[2020-07-16 21:17] LABS: Basophils # (Auto) 0.1 K/mm3 (0.0-0.1); Eosinophils # (Auto) 0.1 K/mm3 (0.0-0.4); Eosinophils % (Auto) 2.3 % (0.0-4.3); Hemoglobin 13.1 gm/dl (10.1-14.3); Lymphocytes # (Auto) 1.5 K/mm3 (1.2-5.4); Lymphocytes % (Auto) 28.9 % (13.4-35.0); Mean Corpuscular HGB Conc 34 % (30-34); Mean Corpuscular Volume 90 fl (79-97); Monocytes # (Auto) 0.4 K/mm3 (0.0-0.8); Monocytes % (Auto) 8.5 % (0.0-7.3); Platelet Count 224 K/mm3 (140-440); Red Blood Count 4.34 M/mm3 (3.65-5.03); Red Cell Distribution Width 14.1 % (13.2-15.2)
[2020-07-16 21:26] LABS: INR 0.92 (0.87-1.13)
[2020-07-16 21:27] LABS: Alanine Aminotransferase 14 units/L (7-56); Albumin 3.8 g/dL (3.9-5); Blood Urea Nitrogen 12 mg/dL (7-17); Calcium 8.9 mg/dL (8.4-10.2); Hemolysis Index 5; Partial Thromboplastin Time 23.6 Sec. (24.2-36.6)
[2020-07-16 21:29] LABS: BUN/Creatinine Ratio 20
== END 2020-07-16 22:10 | disposition home or self-care (01) ==
LOC: ED 19:18
DX: R04.0 Epistaxis (principal); M19.91 Primary osteoarthritis, unspecified site; Z90.49 Acquired absence of other specified parts of digestive tract; Z98.890 Other specified postprocedural states; Z79.899 Other long term (current) drug therapy
CPT/HCPCS: 36415; 80053; 85025; 85610; 85730

== ENCOUNTER 2020-10-06 20:49 | Emergency (ER) | payer MEDICARE ==
[2020-10-06 21:58] VITALS: BP 134/69
--- NOTE | 2020-10-06 22:40 | Emergency Department Report ---
ED Back Pain/Injury HPI - General Chief Complaint: Back Pain/Injury Stated Complaint: BACK PAIN Time Seen by Provider: 10/06/20 22:38 Source: patient Limitations: No Limitations - History of Present Illness Initial Comments: 69-year-old asthmatic female [facility] emerge department complaining of sudden onset of lower back pain with associated tingling and coldness to the left lower extremity of an unknown etiology. She reports having chronic issues with her left hip resulting in the need for a left hip replacement which she is putting off until after her shoulder surgery in October 1999 thousand . Pain is dull and throbbing and worse with various positions and with ambulation. She reports no loss of bowel or bladder no saddle paresthesia. No urinary retention MD Complaint: back pain - Related Data Previous Rx's Medication Instructions Recorded Last Taken Type Acetaminophen/Codeine [Tylenol 1 tab PO Q6H PRN #10 tab 01/08/17 Unknown Rx /Codeine # 3 tab] Aspirin [Aspirin BABY CHEW TAB] 81 mg PO QDAY #30 tab.chew 01/08/17 Unknown Rx Naproxen Sodium [Aleve TAB] 220 mg PO Q8H #15 tablet 01/08/17 Unknown Rx Rosuvastatin (Nf) [Crestor] 5 mg PO QHS #30 tablet 01/08/17 Unknown Rx Famotidine [Pepcid] 20 mg PO BID #60 tablet 05/24/18 Unknown Rx Ondansetron [Zofran Odt] 4 mg PO Q8HR #12 tab.rapdis 05/24/18 Unknown Rx Meloxicam [Mobic] 7.5 mg PO QDAY #14 tablet 10/07/20 Unknown Rx Allergies Allergy/AdvReac Type Severity Reaction Status Date / Time No Known Allergies Allergy Unverified 05/05/14 09:24 ED Review of Systems ROS: Stated complaint: BACK PAIN Other details as noted in HPI Comment: All other systems reviewed and negative ED Past Medical Hx - Past Medical History Hx Arthritis: Yes Hx Kidney Stones: Yes Additional medical history: hammer toes. Left hip pain. Back pain - Surgical History Hx Cholecystectomy: Yes Additional Surgical History: Bilat knee replacement,BUNGEON REPAIR,. Right shoulder surgery - Social History Smoking Status: Never Smoker Substance Use Type: None - Medications Home Medications: Home Medications Medication Instructions Recorded Confirmed Last Taken Type Acetaminophen/Codeine [Tylenol 1 tab PO Q6H PRN #10 tab 01/08/17 Unknown Rx /Codeine # 3 tab] Aspirin [Aspirin BABY CHEW TAB] 81 mg PO QDAY #30 tab.chew 01/08/17 Unknown Rx Naproxen Sodium [Aleve TAB] 220 mg PO Q8H #15 tablet 01/08/17 Unknown Rx Rosuvastatin (Nf) [Crestor] 5 mg PO QHS #30 tablet 01/08/17 Unknown Rx Famotidine [Pepcid] 20 mg PO BID #60 tablet 05/24/18 Unknown Rx Ondansetron [Zofran Odt] 4 mg PO Q8HR #12 tab.rapdis 05/24/18 Unknown Rx Meloxicam [Mobic] 7.5 mg PO QDAY #14 tablet 10/07/20 Unknown Rx ED Physical Exam - General Limitations: No Limitations General appearance: alert, in no apparent distress - Head Head exam: Present: atraumatic, normocephalic - Eye Eye exam: Present: normal appearance - ENT ENT exam: Present: mucous membranes moist - Neck Neck exam: Present: normal inspection - Respiratory Respiratory exam: Present: normal lung sounds bilaterally. Absent: respiratory distress - Cardiovascular Cardiovascular Exam: Present: regular rate, normal rhythm. Absent: systolic murmur, diastolic murmur, rubs, gallop - GI/Abdominal GI/Abdominal exam: Present: soft, normal bowel sounds - Extremities Exam Extremities exam: Present: normal inspection - Back Exam Back exam: Present: normal inspection, tenderness, paraspinal tenderness, vertebral tenderness, other. Absent: CVA tenderness (R), CVA tenderness (L) - Neurological Exam Neurological exam: Present: alert, oriented X3, CN II-XII intact (Negative seated straight leg raise). Absent: normal gait - Psychiatric Psychiatric exam: Present: normal affect, normal mood - Skin Skin exam: Present: warm, dry, intact, normal color. Absent: rash ED Course Vital Signs 10/06/20 21:22 Temperature 98.7 F Pulse Rate 77 Respiratory 18 Rate Blood Pressure 134/69 O2 Sat by Pulse 97 Oximetry ED Medical Decision Making - Radiology Data Radiology results: report reviewed [address] [place] [id number] XRay Report Signed Patient: VINH RAY MR#: [id number] : 1950 Acct:[id number] Age/Sex: 69 / F ADM Date: 10/06/20 Loc: ED Attending Dr: Ordering Physician: PAULO HAWKINS Date of Service: 10/06/20 Procedure(s): XR spine lumbosacral 2-3V Accession Number(s): [id number] cc: PAULO HAWKINS Fluoro Time In Minutes: LUMBAR SPINE 3 VIEWS 2311 INDICATION: back pian COMPARISON: None available. FINDINGS: Slight scoliosis is seen. No fractures are noted. Diffuse degenerative changes are seen. Moderate disc space narrowing seen at L5-S1 with mild narrowing at L4-5. Mild anterolisthesis is seen at L4-5. Slight retrolisthesis is seen at L5-S1. Prominent lower facet arthritic changes are seen. Signer Name: Markel Smith MD Signed: 10/06/2020 11:52 PM Workstation Name: [id number] Transcribed By: GJ Dictated By: Markel Smith MD Electronically Authenticated By: Markel Smith MD Signed Date/Time: 10/06/202351 DD/ 50 TD/TT: Print Cancel - Medical Decision Making Pt presents the emergency department complaining of back pain most consistent with lumbar go back Pain Most Consistent with Strain/Contusion. Differential Diagnosis Includes Lumbar Go Versus Musculoskeletal Spasm, Strain Versus Sciatica. No Back Pain Red Flags on History or Physical. Presentation Not Consistent with Malignancy, Fracture, Cauda Equina, Abdominal Aortic Aneurysm, Viscus Perforation, Pulmonary Embolism, Renal Colic, Pyelonephritis. Patient reports no B symptoms, trauma trauma, incontinence, saddle anesthesia, distal weakness, urinary symptoms and is a febrile. Critical care attestation.: If time is entered above; I have spent that time in minutes in the direct care of this critically ill patient, excluding procedure time. ED Disposition Clinical Impression: Low back pain radiating to left leg, Arthritis Disposition: - TO HOME OR SELFCARE Is pt being admited?: No Does the pt Need Aspirin: No Condition: Stable Instructions: Radicular Pain, How to Use Cold Therapy, Back Injury Prevention, [id number] Prescriptions: Meloxicam [Mobic] 7.5 mg PO QDAY #14 tablet Referrals: PRIMARY CARE, [Primary Care Provider] - 3-5 Days SIDNEY SOLIS MD [Staff Physician] - 3-5 Days
--- NOTE | 2020-10-06 23:56 | XRay Report ---
LUMBAR SPINE 3 VIEWS 2311 INDICATION: back pian COMPARISON: None available. FINDINGS: Slight scoliosis is seen. No fractures are noted. Diffuse degenerative changes are seen. Mo derate disc space narrowing seen at L5-S1 with mild narrowing at L4-5. Mild anterolisthesis is seen a t L4-5. Slight retrolisthesis is seen at L5-S1. Prominent lower facet arthritic changes are seen. Signer Name: Markel Smith MD Signed: 10/06/2020 11:52 PM Workstation Name: [id number]
[2020-10-07 00:41] LABS: Bilirubin,Urine NEG (Negative); Blood,Urine NEG (Negative); Color,Urine Yellow (Yellow); Protein,Urine <15 mg/dL mg/dL (Negative); Urobilinogen,Urine < 2.0 mg/dL (<2.0)
== END 2020-10-07 01:01 | disposition home or self-care (01) ==
LOC: ED 20:49
DX: M54.5 Low back pain (principal); M79.605 Pain in left leg; M19.91 Primary osteoarthritis, unspecified site; Z90.49 Acquired absence of other specified parts of digestive tract; Z98.890 Other specified postprocedural states; Z79.899 Other long term (current) drug therapy
CPT/HCPCS: 72100; 81001

== ENCOUNTER 2020-10-17 10:33 | Emergency (ER) | payer MEDICARE ==
[2020-10-17 12:22] LABS: Basophils % (Auto) 0.6 % (0.0-1.8); Eosinophils % (Auto) 0.7 % (0.0-4.3); Hematocrit 38.3 % (30.3-42.9); Hemoglobin 13.3 gm/dl (10.1-14.3); Lymphocytes # (Auto) 1.4 K/mm3 (1.2-5.4); Lymphocytes % (Auto) 22.6 % (13.4-35.0); Mean Corpuscular HGB Conc 35 % (30-34); Mean Corpuscular Volume 88 fl (79-97); Monocytes # (Auto) 0.4 K/mm3 (0.0-0.8); Platelet Count 247 K/mm3 (140-440); Red Blood Count 4.33 M/mm3 (3.65-5.03); Red Cell Distribution Width 13.5 % (13.2-15.2)
[2020-10-17 12:40] LABS: Alanine Aminotransferase 14 units/L (7-56); BUN/Creatinine Ratio 24; Blood Urea Nitrogen 12 mg/dL (7-17); Calcium 9.1 mg/dL (8.4-10.2); Hemolysis Index 13
[2020-10-17 20:42] LABS: Bilirubin,Urine NEG (Negative); Blood,Urine NEG (Negative); Color,Urine Yellow (Yellow); Hyaline Casts,Urine 1 /LPF; Mucus,Urine FEW /HPF; Protein,Urine <15 mg/dL mg/dL (Negative); Urobilinogen,Urine < 2.0 mg/dL (<2.0)
[2020-10-17 22:44] VITALS: BP 117/76
== END 2020-10-17 22:44 | disposition home or self-care (01) ==
LOC: ED 10:33
DX: R07.89 Other chest pain (principal); R06.02 Shortness of breath; R35.0 Frequency of micturition; M25.511 Pain in right shoulder; M25.551 Pain in right hip; G89.29 Other chronic pain; M19.91 Primary osteoarthritis, unspecified site; Z90.49 Acquired absence of other specified parts of digestive tract; Z98.890 Other specified postprocedural states; Z79.899 Other long term (current) drug therapy
CPT/HCPCS: 36415; 71046; 80053; 81001; 83880; 84484; 85025; 93005

== ENCOUNTER 2021-09-05 12:00 | Emergency (ER) | payer MEDICARE ==
[2021-09-05 15:51] VITALS: BP 103/67
== END 2021-09-06 00:15 | disposition left against medical advice (07) ==
LOC: ED 12:00
DX: Z00.00 Encounter for general adult medical examination without abnormal findings (principal); Z53.21 Procedure and treatment not carried out due to patient leaving prior to being seen by health care provider

== ENCOUNTER 2021-09-16 08:36 | Outpatient (CLI) | payer MEDICARE ==
[2021-09-16] MEDS ORDERED: LIDOCAINE (4%) 40 MG/ML TOPICAL SOLN 50 ML BOTTLE TP ONE (09:01)
[2021-09-16] MEDS ORDERED: SODIUM HYPOCHLORITE, DAKIN'S FULL STRENGTH (0.5%) 473 ML TOPICAL SOLN TP ONE (09:54)
== END 2021-09-16 08:37 | disposition home or self-care (01) ==
LOC: WOUND 08:36
PROVIDERS: ATTEND Surgery
DX: L89.314 Pressure ulcer of right buttock, stage 4 (principal); L89.320 Pressure ulcer of left buttock, unstageable; L89.42 Pressure ulcer of contiguous site of back, buttock and hip, stage 2; M70.80 Other soft tissue disorders related to use, overuse and pressure of unspecified site; Z79.899 Other long term (current) drug therapy; Z86.718 Personal history of other venous thrombosis and embolism; Z90.49 Acquired absence of other specified parts of digestive tract; Z96.653 Presence of artificial knee joint, bilateral; Z98.890 Other specified postprocedural states
CPT/HCPCS: 11042; 11045; G0463; 99214

== ENCOUNTER 2021-09-23 08:48 | Outpatient (CLI) | payer MEDICARE ==
[2021-09-23] MEDS ORDERED: LIDOCAINE (4%) 40 MG/ML TOPICAL SOLN 50 ML BOTTLE TP ONE (09:34)
[2021-09-23] MEDS ORDERED: SODIUM HYPOCHLORITE, DAKIN'S FULL STRENGTH (0.5%) 473 ML TOPICAL SOLN TP SCH (10:30)
== END 2021-09-23 08:49 | disposition home or self-care (01) ==
LOC: WOUND 08:48
PROVIDERS: ATTEND Surgery
DX: L89.314 Pressure ulcer of right buttock, stage 4 (principal); L89.320 Pressure ulcer of left buttock, unstageable; L89.42 Pressure ulcer of contiguous site of back, buttock and hip, stage 2; M70.80 Other soft tissue disorders related to use, overuse and pressure of unspecified site; Z79.899 Other long term (current) drug therapy; Z86.718 Personal history of other venous thrombosis and embolism; Z90.49 Acquired absence of other specified parts of digestive tract; Z96.653 Presence of artificial knee joint, bilateral; Z98.890 Other specified postprocedural states

== ENCOUNTER 2021-10-14 08:15 | Outpatient (CLI) | payer MEDICARE ==
[2021-10-14] MEDS ORDERED: LIDOCAINE (4%) 40 MG/ML TOPICAL SOLN 50 ML BOTTLE TP ONE (08:24)
[2021-10-14] MEDS ORDERED: SODIUM CHLORIDE 0.9% IRR 1,000 ML BOTTLE IR SCH (09:54)
[2021-10-14] MEDS ORDERED: SODIUM CHLORIDE IRRIG SOLUTION 1,000 ML BAG IR ONE (14:40)
== END 2021-10-14 08:16 | disposition home or self-care (01) ==
LOC: WOUND 08:15
PROVIDERS: ATTEND Surgery
DX: L89.314 Pressure ulcer of right buttock, stage 4 (principal); L89.320 Pressure ulcer of left buttock, unstageable; L89.42 Pressure ulcer of contiguous site of back, buttock and hip, stage 2; M70.80 Other soft tissue disorders related to use, overuse and pressure of unspecified site; Z86.718 Personal history of other venous thrombosis and embolism; Z96.653 Presence of artificial knee joint, bilateral; Z98.890 Other specified postprocedural states; Z79.899 Other long term (current) drug therapy

== ENCOUNTER 2021-10-21 10:47 | Outpatient (CLI) | payer MEDICARE ==
[2021-10-21] MEDS ORDERED: LIDOCAINE (4%) 40 MG/ML TOPICAL SOLN 50 ML BOTTLE TP ONE (10:52)
[2021-10-21] MEDS ORDERED: SODIUM CHLORIDE IRRIG SOLUTION 1,000 ML BAG IR ONE (10:52)
== END 2021-10-21 10:48 | disposition home or self-care (01) ==
LOC: WOUND 10:47
PROVIDERS: ATTEND Surgery
DX: L89.314 Pressure ulcer of right buttock, stage 4 (principal); L89.320 Pressure ulcer of left buttock, unstageable; L89.42 Pressure ulcer of contiguous site of back, buttock and hip, stage 2; M70.80 Other soft tissue disorders related to use, overuse and pressure of unspecified site; Z86.718 Personal history of other venous thrombosis and embolism; Z96.653 Presence of artificial knee joint, bilateral; Z98.890 Other specified postprocedural states; Z79.899 Other long term (current) drug therapy

== ENCOUNTER 2021-10-28 11:54 | Outpatient (CLI) | payer MEDICARE ==
[2021-10-28] MEDS ORDERED: SODIUM HYPOCHLORITE, DAKIN'S FULL STRENGTH (0.5%) 473 ML TOPICAL SOLN TP ONE (15:00)
== END 2021-10-28 11:55 | disposition home or self-care (01) ==
LOC: WOUND 11:54
PROVIDERS: ATTEND Surgery
DX: L89.314 Pressure ulcer of right buttock, stage 4 (principal); L89.313 Pressure ulcer of right buttock, stage 3; L89.214 Pressure ulcer of right hip, stage 4; L89.223 Pressure ulcer of left hip, stage 3; Z86.718 Personal history of other venous thrombosis and embolism; Z96.653 Presence of artificial knee joint, bilateral; Z90.49 Acquired absence of other specified parts of digestive tract; Z98.890 Other specified postprocedural states; Z79.899 Other long term (current) drug therapy

== ENCOUNTER 2021-11-04 10:15 | Outpatient (CLI) | payer MEDICARE ==
[2021-11-04] MEDS ORDERED: SODIUM CHLORIDE 0.9% IRR 1,000 ML BOTTLE IR ONE (10:20)
[2021-11-04] MEDS ORDERED: LIDOCAINE (4%) 40 MG/ML TOPICAL SOLN 50 ML BOTTLE TP ONE (10:20)
[2021-11-04] MEDS ORDERED: SODIUM CHLORIDE IRRIG SOLUTION 1,000 ML BAG IR SCH (11:00)
[2021-11-04] MEDS ORDERED: SODIUM HYPOCHLORITE, DAKIN'S FULL STRENGTH (0.5%) 473 ML TOPICAL SOLN TP ONE (12:56)
== END 2021-11-04 10:16 | disposition home or self-care (01) ==
LOC: WOUND 10:15
PROVIDERS: ATTEND Surgery
DX: L89.314 Pressure ulcer of right buttock, stage 4 (principal); L89.323 Pressure ulcer of left buttock, stage 3; L89.214 Pressure ulcer of right hip, stage 4; L89.223 Pressure ulcer of left hip, stage 3; Z86.718 Personal history of other venous thrombosis and embolism; Z96.653 Presence of artificial knee joint, bilateral; Z98.890 Other specified postprocedural states; Z79.899 Other long term (current) drug therapy
CPT/HCPCS: 97597; 97598

== ENCOUNTER 2021-11-25 09:58 | Outpatient (CLI) | payer MEDICARE ==
[2021-11-25] MEDS ORDERED: LIDOCAINE (4%) 40 MG/ML TOPICAL SOLN 50 ML BOTTLE TP ONE (11:00)
[2021-11-25] MEDS ORDERED: SODIUM CHLORIDE IRRIG SOLUTION 1,000 ML BAG IR ONE (12:17)
[2021-11-25] MEDS ORDERED: SODIUM CHLORIDE 0.9% 1000 ML 1,000 ML IV ONE (13:00)
== END 2021-11-25 09:59 | disposition home or self-care (01) ==
LOC: WOUND 09:58
PROVIDERS: ATTEND Surgery
DX: L89.314 Pressure ulcer of right buttock, stage 4 (principal); L89.323 Pressure ulcer of left buttock, stage 3; L89.214 Pressure ulcer of right hip, stage 4; L89.223 Pressure ulcer of left hip, stage 3; Z86.718 Personal history of other venous thrombosis and embolism; Z96.653 Presence of artificial knee joint, bilateral; Z90.49 Acquired absence of other specified parts of digestive tract; Z98.890 Other specified postprocedural states; Z79.899 Other long term (current) drug therapy
CPT/HCPCS: J7030

== ENCOUNTER 2021-12-02 10:34 | Outpatient (CLI) | payer MEDICARE ==
--- NOTE | 2021-12-02 13:11 | Cat Scan Report ---
CT RIGHT FEMUR WITHOUT CONTRAST CT LEFT FEMUR WITHOUT CONTRAST INDICATION / CLINICAL INFORMATION: L89.214 bilateral pressure ulcer stage 4. TECHNIQUE: All CT scans at this location are performed using CT dose reduction for ALARA by means of automated exposure control. COMPARISON: None available. FINDINGS: RIGHT THIGH: BONES: NO FRACTURE. NO OSSEOUS LESION. No cortical destruction. MUSCLES / TENDONS: NO SIGNIFICANT ABNORMALITY. SOFT TISSUES: There is a large decubitus ulcer along the posterior aspect of the proximal right thigh /right hip which tracks deep adjacent to the greater trochanter posteriorly. There is granulation tis bart along the ulcer. No fluid collection is identified within the periarticular soft tissues. VISUALIZED JOINTS: Advanced osteoarthrosis at the right hip. ADDITIONAL FINDINGS: NONE. LEFT THIGH: BONES: No fracture. No osseous lesion. No cortical destruction. MUSCLES / TENDONS: No significant abnormality. SOFT TISSUES: Large decubitus ulcer tracks from the posterior lateral skin surface into the deep soft tissues adjacent to the greater tuberosity of the proximal left femur. There is granulation tissue a long the ulcer/tract but no fluid collections are identified. VISUALIZED JOINTS: No significant abnormality. ADDITIONAL FINDINGS: None. IMPRESSION: 1. Deep bilateral pressure ulcers along both hips. The ulcers track deep adjacent to the bilateral gr eater tuberosities. However, no cayetano cortical destruction is seen. No abscess is identified. Signer Name: Kingston Joshi MD Signed: 12/02/2021 1:06 PM Workstation Name: [id number]
== END 2021-12-02 10:35 | disposition home or self-care (01) ==
LOC: CT 10:34
PROVIDERS: ATTEND Surgery
DX: L89.214 Pressure ulcer of right hip, stage 4 (principal); L89.223 Pressure ulcer of left hip, stage 3; L89.529 Pressure ulcer of left ankle, unspecified stage; L89.226 Pressure-induced deep tissue damage of left hip; L89.216 Pressure-induced deep tissue damage of right hip; L89.219 Pressure ulcer of right hip, unspecified stage; M16.0 Bilateral primary osteoarthritis of hip

== ENCOUNTER 2021-12-09 10:05 | Outpatient (CLI) | payer MEDICARE ==
[2021-12-09] MEDS ORDERED: LIDOCAINE (4%) 40 MG/ML TOPICAL SOLN 50 ML BOTTLE TP ONE (10:44)
[2021-12-09] MEDS ORDERED: SODIUM CHLORIDE IRRIG SOLUTION 1,000 ML BAG IR ONE (10:45)
== END 2021-12-09 10:06 | disposition home or self-care (01) ==
LOC: WOUND 10:05
PROVIDERS: ATTEND Surgery
DX: L89.314 Pressure ulcer of right buttock, stage 4 (principal); L89.323 Pressure ulcer of left buttock, stage 3; L89.214 Pressure ulcer of right hip, stage 4; L89.223 Pressure ulcer of left hip, stage 3; Z86.718 Personal history of other venous thrombosis and embolism; Z96.653 Presence of artificial knee joint, bilateral; Z90.49 Acquired absence of other specified parts of digestive tract; Z98.890 Other specified postprocedural states; Z79.899 Other long term (current) drug therapy

== ENCOUNTER 2021-12-16 10:15 | Outpatient (CLI) | payer MEDICARE ==
[2021-12-16] MEDS ORDERED: LIDOCAINE (4%) 40 MG/ML TOPICAL SOLN 50 ML BOTTLE TP NR (11:00)
[2021-12-16] MEDS ORDERED: SODIUM HYPOCHLORITE, DAKIN'S FULL STRENGTH (0.5%) 473 ML TOPICAL SOLN TP ONE (11:28)
== END 2021-12-16 10:16 | disposition home or self-care (01) ==
LOC: WOUND 10:15
PROVIDERS: ATTEND Surgery
DX: L89.314 Pressure ulcer of right buttock, stage 4 (principal); L89.323 Pressure ulcer of left buttock, stage 3; L89.214 Pressure ulcer of right hip, stage 4; L89.223 Pressure ulcer of left hip, stage 3; Z96.653 Presence of artificial knee joint, bilateral; Z86.718 Personal history of other venous thrombosis and embolism; Z90.49 Acquired absence of other specified parts of digestive tract; Z98.890 Other specified postprocedural states; Z79.899 Other long term (current) drug therapy

== ENCOUNTER 2021-12-23 13:24 | Outpatient (CLI) | payer MEDICARE ==
[2021-12-23] MEDS ORDERED: LIDOCAINE (4%) 40 MG/ML TOPICAL SOLN 50 ML BOTTLE TP ONE (14:23)
[2021-12-23] MEDS ORDERED: SODIUM HYPOCHLORITE, DAKIN'S 1/2 STRENGTH (0.25%) 473 ML TOPICAL SOLN TP PRN (15:04)
[2021-12-23] MEDS ORDERED: SODIUM HYPOCHLORITE, DAKIN'S FULL STRENGTH (0.5%) 473 ML TOPICAL SOLN IR PRN ×2 (15:30)
== END 2021-12-23 13:25 | disposition home or self-care (01) ==
LOC: WOUND 13:24
PROVIDERS: ATTEND Surgery
DX: L89.314 Pressure ulcer of right buttock, stage 4 (principal); L89.323 Pressure ulcer of left buttock, stage 3; L89.214 Pressure ulcer of right hip, stage 4; L89.223 Pressure ulcer of left hip, stage 3; Z96.653 Presence of artificial knee joint, bilateral; Z86.718 Personal history of other venous thrombosis and embolism; Z90.49 Acquired absence of other specified parts of digestive tract; Z98.890 Other specified postprocedural states; Z79.899 Other long term (current) drug therapy
CPT/HCPCS: 99214; G0463

== ENCOUNTER 2022-01-13 11:12 | Outpatient (CLI) | payer MEDICARE ==
[2022-01-13] MEDS ORDERED: LIDOCAINE (4%) 40 MG/ML TOPICAL SOLN 50 ML BOTTLE TP ONE (11:16)
== END 2022-01-13 11:13 | disposition home or self-care (01) ==
LOC: WOUND 11:12
PROVIDERS: ATTEND Surgery
DX: L89.314 Pressure ulcer of right buttock, stage 4 (principal); L89.323 Pressure ulcer of left buttock, stage 3; L89.214 Pressure ulcer of right hip, stage 4; L89.223 Pressure ulcer of left hip, stage 3; Z96.653 Presence of artificial knee joint, bilateral; Z86.718 Personal history of other venous thrombosis and embolism; Z90.49 Acquired absence of other specified parts of digestive tract; Z98.890 Other specified postprocedural states; Z79.899 Other long term (current) drug therapy
CPT/HCPCS: 97605

== ENCOUNTER 2022-01-27 11:17 | Outpatient (CLI) | payer MEDICARE | END 2022-01-27 11:18 | disposition home or self-care (01) | LOC: WOUND 11:17 | PROVIDERS: ATTEND Surgery | DX: L89.314 Pressure ulcer of right buttock, stage 4 (principal); L89.323 Pressure ulcer of left buttock, stage 3; L89.214 Pressure ulcer of right hip, stage 4; L89.223 Pressure ulcer of left hip, stage 3; Z96.653 Presence of artificial knee joint, bilateral; Z86.718 Personal history of other venous thrombosis and embolism; Z90.49 Acquired absence of other specified parts of digestive tract; Z98.890 Other specified postprocedural states; Z79.899 Other long term (current) drug therapy | CPT/HCPCS: 97605 ==

== ENCOUNTER 2022-02-10 11:10 | Outpatient (CLI) | payer MEDICARE ==
[2022-02-10] MEDS ORDERED: LIDOCAINE (4%) 40 MG/ML TOPICAL SOLN 50 ML BOTTLE TP ONE (12:00)
== END 2022-02-10 11:11 | disposition home or self-care (01) ==
LOC: WOUND 11:10
PROVIDERS: ATTEND Surgery
DX: L89.314 Pressure ulcer of right buttock, stage 4 (principal); L89.323 Pressure ulcer of left buttock, stage 3; L89.214 Pressure ulcer of right hip, stage 4; L89.223 Pressure ulcer of left hip, stage 3; Z96.653 Presence of artificial knee joint, bilateral; Z86.718 Personal history of other venous thrombosis and embolism; Z90.49 Acquired absence of other specified parts of digestive tract; Z98.890 Other specified postprocedural states; Z79.899 Other long term (current) drug therapy